=== PATIENT | male | born 1945 | race African-American/Black ===

== ENCOUNTER → 2016-07-12 | Outpatient (CLI) | payer OTHER, MEDICAID ==
[~2016-07-12] MED LIST: AMLO10TA2 PO; AMMO12CR4 TOP; COZA100T PO; CYCL1TAB29 PO; GLUC10TA3 PO; HYDR-3533 PO; HYDR25TA5 PO; METO50TA11 PO; OMEP20CA2 PO; PERI8.6T PO; TERA5CAP3 PO; VITA500030 CHEW; test strips
[2016-07-12 11:13] LABS: AUTOMATED NEUTROPHIL # 2.1 TH/MM3 (1.8-7.7); BASOPHIL % 0.7 % (0.0-2.0); EOSINOPHIL % 0.9 % (0.0-4.0); HEMATOCRIT 42.1 % (39.0-51.0); LYMPH % 29.9 % (9.0-44.0); MEAN CELL VOLUME 100.6 FL (80.0-100.0); MEAN CORPUSCULAR HEMOGLOBIN 33.7 PG (27.0-34.0); MEAN CORPUSCULAR HGB CONC 33.5 % (32.0-36.0); MONO % 8.1 % (0.0-8.0); NEUT % 60.4 % (16.0-70.0); PLATELET COUNT 98 TH/MM3 (150-450); RED BLOOD COUNT 4.18 MIL/MM3 (4.50-5.90); RED CELL DISTRIBUTION WIDTH 13.8 % (11.6-17.2); WHITE BLOOD COUNT 3.5 TH/MM3 (4.0-11.0)
[2016-07-12 11:18] LABS: AMPHETAMINE, URINE NEG (NEG); BARBITURATES, URINE NEG (NEG); COCAINE, URINE NEG (NEG)
[2016-07-12 11:19] LABS: HEMO FLAGS AUTO DIFF
[2016-07-12 11:39] LABS: ANION GAP 6 MEQ/L (5-15); AST (GOT) 54 U/L (15-37); BICARBONATE 28.4 MEQ/L (21.0-32.0); BLOOD UREA NITROGEN 17 MG/DL (7-18); CHLORIDE 108 MEQ/L (98-107); GLOMERULAR FILTRATION RATE 64 ML/MIN (>89); GLUCOSE,FASTING 122 MG/DL (74-99); POTASSIUM 3.6 MEQ/L (3.5-5.1); SODIUM (NA) 142 MEQ/L (136-145)
[2016-07-12 11:42] LABS: ALKALINE PHOSPHATASE 63 U/L (45-117); ALT (GPT) 76 U/L (12-78); TOTAL BILIRUBIN ADULT 0.8 MG/DL (0.2-1.0)
[2016-07-12 12:00] LABS: SCAN/DIFF AUTO DIFF CONFIRMED
[2016-07-14 09:56] LABS: HCV RNA PCR LOGIU/ML 6.36 (())
[2016-07-14 17:55] LABS: (LFP)ALT 64 U/L (9-46); A2 MACROGLOBULIN 324 mg/dL (106-279); FIBROSIS STAGE F4 (()); GGT(LFP) 61 U/L (3-70); HAPTOGLOBIN (LFP) 40 mg/dL (43-212); NECROINFLAMM ACT GRADE A2 (()); REFERENCE ID 1420965 (()); TOTAL BILIRUBIN (LFP) 0.8 mg/dL (0.2-1.2)
[2016-07-15 15:54] LABS: HIV RNA COPIES LESS THAN 20.0 (()); HIV RNA LOG COPIES LESS THAN 1.30 (())
== END ==
LOC: CLAB 10:25
PROVIDERS: ATTEND Hospitalist
DX: B19.20 Unspecified viral hepatitis C without hepatic coma (principal)
CPT/HCPCS: 36415; 80053; 80307; 82172; 82247; 82977; 83010; 83883; 84460; 85025; 87522; 87536